=== PATIENT | male | born 1985 | race Caucasian/White ===

== ENCOUNTER → 2024-02-28 13:37 | Outpatient (CLI) | payer OTHER, SELFPAY ==
[2024-02-28 14:51] LABS: Prostate Specific Antigen 0.543 ng/mL (0.10-4.00)
== END ==
PROVIDERS: Referring Provider Urology; Visit Provider Urology
DX: R97.20 Elevated prostate specific antigen [PSA] (principal)
CPT/HCPCS: 36415; 84153